=== PATIENT | male | born 1995 | race African-American/Black ===

== ENCOUNTER 2018-07-04 12:07 | Emergency (ER) | payer OTHER ==
[~2018-07-04] VITALS: Ht 172.7 cm; Wt 77.0 kg
[2018-07-04] MEDS ORDERED: TETANUS, DIPHTHERIA, PERTUSSIS VAC/PF 0.5ML (>7YR OLD) IM ONE (12:45)
[2018-07-04] MEDS ORDERED: BACITRACIN ZINC OINT UDPKT TOP ONE (12:45)
[2018-07-04] MEDS ORDERED: AMOXICILLIN/POTASSIUM CLAVULANATE 875/125MG TAB PO ONE (13:00)
[2018-07-04 14:49] VITALS: BP 131/51
== END 2018-07-04 14:51 | disposition home or self-care (01) ==
LOC: ER 12:07
DX: S51.851A Open bite of right forearm, initial encounter (principal); S61.254A Open bite of right ring finger without damage to nail, initial encounter; S50.851A Superficial foreign body of right forearm, initial encounter; I10 Essential (primary) hypertension; F12.10 Cannabis abuse, uncomplicated; W54.0XXA Bitten by dog, initial encounter; Y93.89 Activity, other specified; Y92.89 Other specified places as the place of occurrence of the external cause
CPT/HCPCS: 73090; 73130; 90471; 90715; 99283

== ENCOUNTER 2024-04-20 11:42 | Emergency (ER) | payer BC, OTHER ==
[~2024-04-20] VITALS: Ht 167.6 cm; Wt 87.0 kg
[2024-04-20 11:52] VITALS: O2SAT 99
[2024-04-20] MEDS: HYDROCODONE/ACETAMINOPHEN 5/325MG TABLET PO ONE (12:15)
[2024-04-20] MEDS: KETOROLAC 30MG/ML VIAL IM ONE (12:18)
[2024-04-20 12:47] LABS: CLARITY URINE CLEAR (CLEAR); COLOR URINE YELLOW (YELLOW); GLUCOSE URINE NEGATIVE (NEGATIVE); KETONES URINE 2+ (NEGATIVE); LEUKOCYTE ESTERASE URINE NEGATIVE (NEGATIVE); NITRITE URINE NEGATIVE (NEGATIVE); OCCULT BLOOD URINE NEGATIVE (NEGATIVE); PH URINE 5.5 (4.5-8.0); PROTEIN URINE TRACE (NEGATIVE); SPECIFIC GRAVITY URINE 1.021 (1.005-1.030); UROBILINOGEN URINE 0.2 E.U./dL (0.2-1.0)
[2024-04-20 13:40] LABS: BACTERIA URINE NONE SEEN; RBC URINE 0-2 /hpf (0-2); SQUAMOUS EPITHELIAL CELL URINE FEW /lpf (RARE/1+); WBC URINE 0-2 /hpf (0-2); YEAST URINE NONE SEEN
[2024-04-20] MEDS ORDERED: LEVO-65 MT (14:05)
[2024-04-20] MEDS: CEFTRIAXONE SODIUM 500MG VIAL IM ONE (14:15)
[2024-04-20 14:16] VITALS: BP 140/84; PULSE 90; RESP 15; TEMP 36.7; O2SAT 99
== END 2024-04-20 14:24 | disposition home or self-care (01) ==
LOC: ER 11:51
DX: N45.3 Epididymo-orchitis (principal); F12.90 Cannabis use, unspecified, uncomplicated; Z79.899 Other long term (current) drug therapy
CPT/HCPCS: 99285; 93976; 81003; 76870; 96372; J1885; J0696